=== PATIENT | female | born 1955 | race Caucasian/White ===

== ENCOUNTER 2016-07-16 23:32 | Emergency (ER) | payer OTHER ==
[~2016-07-16] VITALS: Ht 162.6 cm; Wt 69.5 kg
[~2016-07-16 23:32] MED LIST: ASPI81TA2 PO; BACL10TA PO; BUSP15 PO; CLON1 PO; CLOP75 PO; EZET10 PO; HYDR25TA PO; METO50 PO; OMEP20 PO; PARO30TA76 PO; ROSU20 PO
[2016-07-16] MEDS ORDERED: ATOR40TA28 PO (23:45)
[2016-07-16] MEDS ORDERED: OMEP20 PO (23:45)
[2016-07-16] MEDS ORDERED: NITR.4 SL (23:45)
[2016-07-16] MEDS ORDERED: ONDA4 PO (23:45)
[2016-07-16] MEDS ORDERED: CLON1 PO (23:45)
[2016-07-17] MEDS ORDERED: LORazepam 2 MG/ML VIAL IVP ONE (00:15)
[2016-07-17 00:39] LABS: BASOPHILS % (AUTO) 0.7 % (0.0-2.0); EOSINOPHILS % (AUTO) 1.5 % (1.0-6.0); HEMATOCRIT 47.5 % (36-46); HEMOGLOBIN 15.6 g/dL (12.0-16.0); LYMPHOCYTES # (AUTO) 5.7 K/uL (1.0-4.8); LYMPHOCYTES % (AUTO) 32.8 % (22.0-44.0); MEAN CORPUSCULAR HGB CONC 32.8 G/dL (31.0-37.0); MEAN CORPUSCULAR VOLUME 95 fL (80-100); MONOCYTES % (AUTO) 5.7 % (2.0-9.0); NEUTROPHILS # (AUTO) 10.2 K/uL (1.8-7.7); NEUTROPHILS % (AUTO) 59.3 % (40.0-70.0); PLATELET COUNT (AUTO) 266 K/uL (150-450); RED BLOOD CELL COUNT(AUTO) 5.02 MIL/uL (4.00-5.20); RED CELL DISTRIBUTION WIDTH 13.9 % (11.5-14.5); WHITE BLOOD COUNT (AUTO) 17.3 K/uL (4.5-11.0)
[2016-07-17 00:49] LABS: ANION GAP 11 mmol/L (8-16); CALCIUM, TOTAL 9.7 mg/dL (8.8-10.5); CARBON DIOXIDE 25 mmol/L (22-29); CHLORIDE 97 mmol/L (98-107); CREATININE 0.85 mg/dL (0.60-1.30); GLOMERULAR FILTR. RATE CALC > 60 mL/min (>60); POTASSIUM 3.2 mmol/L (3.5-5.1); SODIUM SERUM 133 mmol/L (136-145); UREA NITROGEN, BLOOD 11 mg/dL (7-18)
[2016-07-17 00:55] LABS: ALANINE AMINOTRANSFERASE 19 U/L (12-78); ALBUMIN 3.7 g/dL (3.4-5.0); ASPARTATE AMINOTRANSFERASE 15 U/L (15-37); BILIRUBIN,TOTAL 0.3 mg/dL (0.1-1.0)
[2016-07-17 01:36] VITALS: BP 166/74
[2016-07-17] MEDS ORDERED: POTASSIUM CHLORIDE 10% 40 MEQ/30 ML LIQUID UDCUP PO ONE (01:45)
== END 2016-07-17 02:14 | disposition home or self-care (01) ==
LOC: EMS 23:34
DX: F41.9 Anxiety disorder, unspecified (principal); R06.4 Hyperventilation; J30.2 Other seasonal allergic rhinitis; E87.6 Hypokalemia; I10 Essential (primary) hypertension; F32.9 Major depressive disorder, single episode, unspecified; E78.00 Pure hypercholesterolemia, unspecified; F17.210 Nicotine dependence, cigarettes, uncomplicated; Z86.73 Personal history of transient ischemic attack (TIA), and cerebral infarction without residual deficits; Z79.82 Long term (current) use of aspirin
CPT/HCPCS: 36415; 80053; 84484; 85025; 93005; 96374; 99285; J2060

== ENCOUNTER 2016-08-13 03:53 | Inpatient (IN) | payer MEDICAID, OTHER ==
[~2016-08-13] VITALS: Ht 154.9 cm; Wt 64.6 kg
[~2016-08-13 03:53] MED LIST changes: +ATOR40TA28 PO; -CLOP75 PO; -EZET10 PO; +NITR.4 SL; +ONDA4 PO; -ROSU20 PO
[2016-08-13] MEDS ORDERED: ACTIVATED CHARCOAL 50 GM/240 ML SUSPENSION PO ONE (04:15)
[2016-08-13 04:25] LABS: BASOPHILS # (AUTO) 0.09 K/uL (0.00-0.20); BASOPHILS % (AUTO) 0.7 % (0.0-2.0); EOSINOPHILS # (AUTO) 0.19 K/uL (0.00-0.70); EOSINOPHILS % (AUTO) 1.42 % (1.0-6.0); HEMATOCRIT 41.5 % (36-46); HEMOGLOBIN 13.8 g/dL (12.0-16.0); LYMPHOCYTES % (AUTO) 30.6 % (22.0-44.0); MEAN CORPUSCULAR HEMOGLOBIN 31.6 pg (26.0-34.0); MEAN CORPUSCULAR HGB CONC 33.3 G/dL (31.0-37.0); MEAN CORPUSCULAR VOLUME 95 fL (80-100); MONOCYTES # (AUTO) 0.8 K/uL (0.1-1.0); MONOCYTES % (AUTO) 5.8 % (2.0-9.0); NEUTROPHILS # (AUTO) 8.1 K/uL (1.8-7.7); NEUTROPHILS % (AUTO) 61.5 % (40.0-70.0); PLATELET COUNT (AUTO) 307 K/uL (150-450); RED BLOOD CELL COUNT(AUTO) 4.36 MIL/uL (4.00-5.20); RED CELL DISTRIBUTION WIDTH 13.9 % (11.5-14.5); WHITE BLOOD COUNT (AUTO) 13.1 K/uL (4.5-11.0)
[2016-08-13 04:28] LABS: ANION GAP 11 mmol/L (8-16); CALCIUM, TOTAL 8.9 mg/dL (8.8-10.5); CARBON DIOXIDE 25 mmol/L (22-29); CHLORIDE 97 mmol/L (98-107); CREATININE 1.07 mg/dL (0.60-1.30); GLOMERULAR FILTR. RATE CALC 52 mL/min (>60); POTASSIUM 3.8 mmol/L (3.5-5.1); SODIUM SERUM 133 mmol/L (136-145); UREA NITROGEN, BLOOD 25 mg/dL (7-18)
[2016-08-13 04:41] LABS: ALANINE AMINOTRANSFERASE 27 U/L (12-78); ALBUMIN 3.2 g/dL (3.4-5.0); ASPARTATE AMINOTRANSFERASE 18 U/L (15-37); BILIRUBIN,TOTAL 0.2 mg/dL (0.1-1.0); TOTAL PROTEIN, SERUM 7.5 g/dL (6.4-8.2)
[2016-08-13 04:43] LABS: SALICYLATE 5.4 mg/dL (2.8-20.0)
[2016-08-13 05:20] LABS: ACETAMINOPHEN < 10 mcg/mL (10-30)
[2016-08-13] MEDS ORDERED: QUEtiapine FUMARATE 100 MG TABLET PO PRN (08:00)
[2016-08-13 09:01] LABS: APPEARANCE,URINE CLEAR (CLEAR); GLUCOSE, URINE (UA) NEGATIVE (NEGATIVE); KETONES,URINE NEGATIVE (NEGATIVE); LEUKOCYTE ESTERASE ,URINE NEGATIVE (NEGATIVE); OCCULT BLOOD,URINE SMALL (NEGATIVE); PH,URINE 6.5 (5.0-8.0); PROTEIN,URINE NEGATIVE (NEGATIVE)
[2016-08-13 09:03] LABS: ADD UA MICROSCOPIC YES
[2016-08-13 09:10] LABS: RBC,URINE 0-2 /HPF (0-2)
[2016-08-13 09:11] LABS: SQUAMOUS EPITHELIAL CELL,UR Rare /LPF (None Seen); WBC,URINE None Seen /HPF (0-5)
[2016-08-13 09:53] VITALS: BP 100/60
[2016-08-13] MEDS ORDERED: TUBERCULIN, PURIFIED PROTEIN DERIVATIVE 5 TU/0.1 ML SYG ID ONE (10:00)
[2016-08-13] MEDS ORDERED: HydrOXYzine PAMOATE 50 MG CAPSULE PO PRN (10:00)
[2016-08-13] MEDS ORDERED: GuaiFENesin/D-METHORPHAN [SUGAR-FREE] 200-20MG/10 ML SYRUP UDCUP PO PRN (10:00)
[2016-08-13] MEDS ORDERED: MAG HYDROX/AL HYDROX/SIMETH ES 30 ML SUSPENSION UDCUP PO PRN (10:00)
[2016-08-13] MEDS ORDERED: PROMETHAZINE HCL 25 MG TABLET PO PRN (10:00)
[2016-08-13] MEDS ORDERED: ACETAMINOPHEN 325 MG TABLET PO PRN ×2 (10:00→15:30)
[2016-08-13] MEDS ORDERED: LOPERAMIDE HCL 2 MG CAPSULE PO PRN (10:00)
[2016-08-13] MEDS ORDERED: MAGNESIUM HYDROXIDE SUSPENSION 30 ML UDCUP PO PRN (10:00)
[2016-08-13 17:00] VITALS: BP 128/76
[2016-08-13] MEDS: BusPIRone HCL 15 MG TABLET PO SCH ×2 (17:00→17:43)
[2016-08-13] MEDS: THIAMINE HCL 100 MG TABLET PO SCH (17:43)
[2016-08-13] MEDS: METOPROLOL TARTRATE 50 MG TABLET PO SCH (17:43)
[2016-08-13] MEDS: LORazepam 1 MG TABLET PO PRN (17:47)
[2016-08-13] MEDS: ATORVASTATIN CALCIUM 40 MG TABLET PO SCH (20:35)
[2016-08-13] MEDS: BACLOFEN 10 MG TABLET PO SCH (20:35)
[2016-08-13] MEDS: ZOLPIDEM TARTRATE 10 MG TABLET PO PRN (21:09)
[2016-08-14 07:29] LABS: CHOL/HDL RATIO 6.3 (3.9-5.7)
[2016-08-14 09:10] VITALS: BP 123/67
[2016-08-14] MEDS: OMEPRAZOLE 20 MG CAPSULE PO SCH (09:22)
[2016-08-14] MEDS: THIAMINE HCL 100 MG TABLET PO SCH ×2 (09:22→16:31)
[2016-08-14] MEDS: ASPIRIN 81 MG CHEWABLE TABLET PO SCH (09:23)
[2016-08-14] MEDS: METOPROLOL TARTRATE 50 MG TABLET PO SCH ×2 (09:23→16:31)
[2016-08-14] MEDS: MULTIVITAMINS WITH MINERALS, THERAPEUTIC TABLET PO SCH (09:23)
[2016-08-14] MEDS: BusPIRone HCL 15 MG TABLET PO SCH ×2 (09:23→16:31)
[2016-08-14] MEDS: FOLIC ACID 1 MG TABLET PO SCH (09:23)
[2016-08-14] MEDS: PARoxetine HCL 20 MG TABLET PO SCH (09:23)
[2016-08-14] MEDS: NICOTINE 21 MG/24 HOUR PATCH TD SCH (09:25)
[2016-08-14 16:30] VITALS: BP 128/66
[2016-08-14] MEDS ORDERED: BUSP15 PO (18:18)
[2016-08-14] MEDS ORDERED: PARO20TA24 PO (18:18)
[2016-08-14] MEDS ORDERED: IBUPROFEN 400 MG TABLET PO PRN (19:00)
[2016-08-14] MEDS ORDERED: ACETAMINOPHEN 325 MG TABLET PO PRN (19:00)
[2016-08-14] MEDS: ATORVASTATIN CALCIUM 40 MG TABLET PO SCH (20:16)
[2016-08-14] MEDS: BACLOFEN 10 MG TABLET PO SCH (20:16)
[2016-08-14] MEDS: ZOLPIDEM TARTRATE 10 MG TABLET PO PRN (20:18)
[2016-08-14] MEDS: LORazepam 1 MG TABLET PO PRN (23:22)
[2016-08-15 00:35] VITALS: BP 126/72
[2016-08-15 07:13] LABS: BASOPHILS % (AUTO) 0.3 % (0.0-2.0); EOSINOPHILS % (AUTO) 2.2 % (1.0-6.0); HEMATOCRIT 42.4 % (36-46); HEMOGLOBIN 13.9 g/dL (12.0-16.0); LYMPHOCYTES # (AUTO) 5.5 K/uL (1.0-4.8); MEAN CORPUSCULAR HEMOGLOBIN 31.3 pg (26.0-34.0); MEAN CORPUSCULAR HGB CONC 32.7 G/dL (31.0-37.0); MEAN CORPUSCULAR VOLUME 96 fL (80-100); MONOCYTES # (AUTO) 0.7 K/uL (0.1-1.0); MONOCYTES % (AUTO) 5.9 % (2.0-9.0); NEUTROPHILS # (AUTO) 5.5 K/uL (1.8-7.7); NEUTROPHILS % (AUTO) 45.6 % (40.0-70.0); PLATELET COUNT (AUTO) 298 K/uL (150-450); RED BLOOD CELL COUNT(AUTO) 4.43 MIL/uL (4.00-5.20); RED CELL DISTRIBUTION WIDTH 14.3 % (11.5-14.5)
[2016-08-15] MEDS: THIAMINE HCL 100 MG TABLET PO SCH (09:03)
[2016-08-15] MEDS: MULTIVITAMINS WITH MINERALS, THERAPEUTIC TABLET PO SCH (09:03)
[2016-08-15] MEDS: PARoxetine HCL 20 MG TABLET PO SCH (09:04)
[2016-08-15] MEDS: ASPIRIN 81 MG CHEWABLE TABLET PO SCH (09:04)
[2016-08-15] MEDS: FOLIC ACID 1 MG TABLET PO SCH (09:04)
[2016-08-15] MEDS: METOPROLOL TARTRATE 50 MG TABLET PO SCH (09:04)
[2016-08-15] MEDS: OMEPRAZOLE 20 MG CAPSULE PO SCH (09:05)
[2016-08-15] MEDS: NICOTINE 21 MG/24 HOUR PATCH TD SCH (09:06)
[2016-08-15] MEDS: BusPIRone HCL 15 MG TABLET PO SCH (09:48)
== END 2016-08-15 14:00 | disposition home or self-care (01) | DRG 751 ==
LOC: EMS 03:55 → 3EI 07:42
PROVIDERS: ADMIT Psychiatry & Neurology Psychiatry; ATTEND Psychiatry & Neurology Psychiatry
PROC: GZ51ZZZ Individual Psychotherapy, Behavioral (ICD-10-PCS; principal; 2016-08-13)
DX: F33.9 Major depressive disorder, recurrent, unspecified (principal); R45.851 Suicidal ideations; Z91.19 Patient's noncompliance with other medical treatment and regimen; I10 Essential (primary) hypertension; F17.210 Nicotine dependence, cigarettes, uncomplicated; E78.00 Pure hypercholesterolemia, unspecified; F41.9 Anxiety disorder, unspecified; M06.9 Rheumatoid arthritis, unspecified; K21.9 Gastro-esophageal reflux disease without esophagitis; E78.5 Hyperlipidemia, unspecified; Z91.5 Personal history of self-harm; Z79.899 Other long term (current) drug therapy; Z86.73 Personal history of transient ischemic attack (TIA), and cerebral infarction without residual deficits; Z79.82 Long term (current) use of aspirin
CPT/HCPCS: 84443; 93005; 99285; G0480; G0481